=== PATIENT | female | born 1970 | race African-American/Black ===

== ENCOUNTER 2024-08-24 12:33 | Inpatient (IN) | payer OTHER ==
[2024-08-24] MEDS ORDERED: IPRATROPIUM BROM 0.5MG/2.5ML ONE ×2 (13:34→14:58)
[2024-08-24] MEDS ORDERED: ALBUTEROL 2.5 MG/3 ML NEB SOL ONE ×2 (13:34→14:58)
[2024-08-24 13:39] LABS: Absolute Lymphocytes (CBC) 2.3 K/uL (0.7-4.9); Absolute Monocytes 0.3 K/uL (0.1-1.3); Absolute Neutrophil 4.4 K/uL (1.8-8.0); Basophils % 0.6 % (0-1.3); Eosinophils % 0.6 % (0-4.4); Hematocrit 39.1 % (36.0-45.0); Hemoglobin 13.8 g/dL (12.0-15.0); Lymphocytes % 32.4 % (15.3-44.8); MCH 40.3 pg (27.0-35.0); MCHC 35.3 g/dL (32.0-36.0); MCV 114.2 fL (80-100); Monocytes % 4.8 % (3.3-12.3); Neutrophils % 61.6 % (41.7-73.7); Nucleated Red Blood Cells % 0.1 % (0-0); Platelets 447 thou/uL (152-406); RBC Red Blood Cell Count 3.42 M/uL (3.86-4.86); Red Cell Distribution Width 16.2 % (12.1-15.2)
[2024-08-24 14:04] LABS: ALT/SGPT 19 U/L (13-56); AST/SGOT 30 U/L (15-37); Albumin 3.6 g/dL (3.4-5.0); Albumin/Globulin Ratio 0.8 (1.1-1.8); Alkaline Phosphatase 101 U/L (45-117); BUN Blood Urea Nitrogen 4 mg/dL (7-18); Bicarbonate 23 mEq/L (21-32); Bilirubin Total 0.3 mg/dL (0.2-1.0); Globulin 4.3 g/dL (2.3-3.5); Glomerular Filtration Rate 105 ml/min (=/>90); Glucose Level 169 mg/dL (74-106); NT PRO-BNP 16 pg/mL (<125); Protein, Total 7.9 g/dL (6.4-8.2); Sodium Level 138 mEq/L (136-145)
[2024-08-24 14:05] LABS: Anion Gap 11.9 mEq/L (5.0-15.0); Magnesium 1.4 mg/dL (1.6-2.4); Potassium 2.9 mEq/L (3.5-5.1)
[2024-08-24 14:07] LABS: Bilirubin Direct < 0.2 mg/dL (0-0.2); Bilirubin Indirect, Calculated 0.1 mg/dL (0.2-0.8)
[2024-08-24 14:11] LABS: SARS-CoV-2 Antigen CONTROL BLUE LINE VIS/BG OK; SARS-CoV-2 Antigen Rapid Res Negative (Negative)
[2024-08-24 14:40] LABS: PT Prothrombin Time 10.9 SECONDS (9.4-12.5); Protime INR 0.97
[2024-08-24] MEDS ORDERED: NA CHLORIDE 0.9% 250 ML ONE (15:05)
[2024-08-24] MEDS ORDERED: CEFTRIAXONE 1000 MG/VIAL ONE (15:05)
[2024-08-24] MEDS ORDERED: NA CHLORIDE 0.9% 1,000 ML ONE (15:05)
[2024-08-24] MEDS ORDERED: AZITHROMYCIN 500 MG INJ IVPB ONE (15:05)
--- NOTE | 2024-08-24 15:11 | EDPHYS ---
Physician Documentation [facility] Name: Airam Stern Age: 53 yrs Sex: Female : 1970 Arrival Date: 08/24/2024 Time: 12:33 Bed 13 Private MD: ED Physician Tyler Munoz HPI: 08/24 13:35 This 53 yrs old Black Female presents to ER via Ambulatory with complaints of Breathing sp3 Difficulty, Cough. 13:35 53-year-old female with a history of hypertension now presents to the ED with chief sp3 complaint cough, shortness of breath and congestion coupled with chest pain. She denies fever, back pain, abdominal pain, vomit, diarrhea, rash, syncope, sick contacts, or any other signs or symptoms on ROS at this time.. CREMATOR: 13:18 LMP N/A - , Not mb9 Historical: - Allergies: 12:57 No Known Allergies; ph - Home Meds: 13:08 amlodipine 10 mg tablet [Active]; mb9 - PMHx: 13:08 Hypertensive disorder; mb9 - PSHx: 13:08 Total abdominal hysterectomy; mb9 - Immunization history:: Adult Immunizations unknown. - Infectious Disease History:: Denies. - Social history:: Smoking status: Patient reports the use of cigarette tobacco products, smokes one-half pack cigarettes per day. ROS: 13:38 Constitutional: Negative for fever, chills, and weight loss, Eyes: Negative for injury, sp3 pain, redness, and discharge, ENT: Negative for injury, pain, and discharge, Neck: Negative for injury, pain, and swelling, Cardiovascular: Negative for chest pain, palpitations, and edema, Abdomen/GI: Negative for abdominal pain, nausea, vomiting, diarrhea, and constipation, Back: Negative for injury and pain, MS/Extremity: Negative for injury and deformity, Skin: Negative for injury, rash, and discoloration, Neuro: Negative for headache, weakness, numbness, tingling, and seizure, Psych: Negative for depression, anxiety, suicide ideation, homicidal ideation, and hallucinations, Allergy/Immunology: Negative for hives, rash, and allergies, Endocrine: Negative for neck swelling, polydipsia, polyuria, polyphagia, and marked weight changes, Hematologic/Lymphatic: Negative for swollen nodes, abnormal bleeding, and unusual bruising, 13:38 All other systems are negative, Exam: 13:38 Constitutional: This is a well developed, well nourished patient who is awake, alert, sp3 and in no acute distress. Head/Face: Normocephalic, atraumatic. Eyes: Pupils equal round and reactive to light, extra-ocular motions intact. Lids and lashes normal. Conjunctiva and sclera are non-icteric and not injected. Cornea within normal limits. Periorbital areas with no swelling, redness, or edema. Neck: Trachea midline, no thyromegaly or masses palpated, and no cervical lymphadenopathy. Supple, full range of motion without nuchal rigidity, or vertebral point tenderness. No Meningismus. Chest/axilla: Normal chest wall appearance and motion. Nontender with no deformity. No lesions are appreciated. Cardiovascular: Regular rate and rhythm with a normal S1 and S2. No gallops, murmurs, or rubs. Normal PMI, no JVD. No pulse deficits. Abdomen/GI: Soft, non-tender, with normal bowel sounds. No distension or tympany. No guarding or rebound. No evidence of tenderness throughout. Back: No spinal tenderness. No costovertebral tenderness. Full range of motion. Skin: Warm, dry with normal turgor. Normal color with no rashes, no lesions, and no evidence of cellulitis. MS/ Extremity: Pulses equal, no cyanosis. Neurovascular intact. Full, normal range of motion. Neuro: Awake and alert, GCS 15, oriented to person, place, time, and situation. Cranial nerves II-XII grossly intact. Motor strength 5/5 in all extremities. Sensory grossly intact. Cerebellar exam normal. Normal gait. Psych: Awake, alert, with orientation to person, place and time. Behavior, mood, and affect are within normal limits. 13:38 Respiratory: Active cough with production. Mild wheezing. Vital signs are normal room air pulse oxygenation 98%., 13:40 ECG was reviewed by the Attending Physician. EKG demonstrates normal sinus rhythm at 96 sp3 bpm with normal intervals, QTc of 535, leftward axis and nonspecific diffuse ST/T changes without evidence of acute ischemia. Vital Signs: 12:56 BP 119 / 86; Pulse 114; Resp 24; Temp 97.7; Pulse Ox 98% on R/A; ph 13:08 Weight 95.25 kg; Height 5 ft. 7 in. ; mb9 13:18 BP 121 / 86; Pulse 98; Resp 20; Pulse Ox 98% on R/A; mb9 14:12 BP 126 / 82; Pulse 110; Resp 20; Pulse Ox 97% on R/A; mb9 14:58 BP 134 / 81; Pulse 120; Resp 20; Pulse Ox 97% on 2 lpm NC; mb9 17:35 BP 125 / 74; Pulse 110; Resp 18; Temp 97.8(O); Pulse Ox 100% on 2 lpm NC; mb9 13:08 Body Mass Index 32.89 (95.25 kg, 170.18 cm) mb9 MDM: 12:53 Medical Screening Exam initiated sp3 13:39 Data reviewed: vital signs, nurses notes, lab test result(s), EKG, radiologic studies. sp3 ED course: 53-year-old female with hypertension now with upper respiratory symptoms and chest pain. Differential diagnosis includes upper respiratory infection, viral illness, COVID-19, strep pharyngitis, bronchitis, pneumonia, influenza, and to a lesser degree acute coronary syndrome. Workup will include EKG, chest x-ray, labs, swabs and general supportive care including nebulizer.. 15:09 ED course: Patient with pulse oxygenation in the upper 80s and continues to cough and sp3 have shortness of breath. Heart rate between 110 and 120. Normal saline will be given in addition to antibiotics and continue nebulizer treatments. Cultures pending. X-ray demonstrates no significant infiltrate however it may be lagging clinically. Patient will be admitted to observation status for continued treatment.. 08/24 13:22 Order name: Basic Metabolic Panel; Complete Time: 14:39 sp3 08/24 13:22 Order name: CBC with Diff sp3 08/24 13:22 Order name: LFT's; Complete Time: 14:39 sp3 08/24 13:22 Order name: Magnesium; Complete Time: 14:39 sp3 08/24 13:22 Order name: NT PRO-BNP; Complete Time: 14:39 sp3 08/24 13:22 Order name: PT-INR; Complete Time: 14:59 sp3 08/24 13:22 Order name: Troponin HS; Complete Time: 14:39 sp3 08/24 13:33 Order name: Flu; Complete Time: 14:39 sp3 08/24 13:33 Order name: SARS RAPID; Complete Time: 14:39 sp3 08/24 13:33 Order name: Strep sp3 08/24 14:14 Order name: Throat Culture EDOR 08/24 14:59 Order name: Blood Culture Adult (2) [facility] 08/24 15:02 Order name: Lactate w/ 2H reflex if indic. sp3 08/24 15:20 Order name: CBC Smear Scan EDMS 08/24 16:33 Order name: Basic Metabolic Panel EDMS 08/24 16:33 Order name: Basic Metabolic Panel EDMS 08/24 17:45 Order name: Ghost Lactate-NO COLLECT Timer EDMS 08/24 13:22 Order name: XRAY Chest (1 view); Complete Time: 15:15 sp3 08/24 13:22 Order name: Cardiac monitoring; Complete Time: 13:22 sp3 08/24 13:22 Order name: EKG - Nurse/Tech; Complete Time: 13:22 sp3 08/24 13:22 Order name: IV Saline Lock; Complete Time: 13:22 sp3 08/24 13:22 Order name: Labs collected and sent; Complete Time: 13:22 sp3 08/24 13:22 Order name: O2 Per Protocol; Complete Time: 13:22 sp3 08/24 13:22 Order name: O2 Sat Monitoring; Complete Time: 13:22 sp3 Administered Medications: 13:44 Drug: DuoNeb Nebulize (3:1) (2.5 mg - 0.5 mg) 3 ml Nebulizer once Route: Nebulizer; 9 14:13 Follow up: Response: No adverse reaction mb9 15:02 Not Given (Duplicate Order): DuoNeb Nebulize (3:1) (2.5 mg - 0.5 mg) 3 ml Nebulizer oncell1 15:22 Drug: NS 0.9% IV 1000 ml IV at 1000 ml once; to be given as a bolus over 60 minutes mb9 Route: IV; Rate: 1000 ml; Site: right antecubital; 16:05 Follow up: Response: No adverse reaction; IV Status: Completed infusion mb9 15:22 Drug: Rocephin - Rocephin (cefTRIAXone) IVPB 1 grams IVPB once over 30 mins; (mix in 50 mb9 mL NS) Route: IVPB; Infused Over: 30 mins; Site: right antecubital; 16:05 Follow up: Response: No adverse reaction; IV Status: Completed infusion mb9 15:22 Drug: DuoNeb Nebulize (3:1) (2.5 mg - 0.5 mg) 3 ml Nebulizer once Route: Nebulizer; mb9 16:05 Follow up: Response: No adverse reaction mb9 15:33 Drug: Zithromax IVPB 500 mg IVPB once over 1 hrs; mix in 250 mL NS Route: IVPB; Infused mb9 Over: 1 hrs; Site: right antecubital; 17:01 Follow up: Response: No adverse reaction; IV Status: Completed infusion mb9 Disposition Summary: 08/24/24 15:10 Hospitalization Ordered Notes: Hospitalization Status: Observation sp3 Provider: Linda Almanzar sp3 Location: Telemetry/MedSurg (observation) sp3 Condition: Stable sp3 Problem: new sp3 Symptoms: have worsened sp3 Bed/Room Type: Standard sp3 Room Assignment: 203(08/24/24 17:09) bd Diagnosis - Hypoxia, bronchitis, cough sp3 Forms: - Medication Reconciliation Form sp3 - SBAR form sp3 - Leadership Thank You Letter sp3 Signatures: Dispatcher [employer] EDMS Anyi Gamboa Patricia, RN RN Tyler Munoz MD MD sp3 Zara Muller RN RN mb9 Bello Dill RN ll1 Corrections: (The following items were deleted from the chart) 13:23 13:23 BASIC METABOLIC PANEL+C.LAB.BRZ ordered. EDMS EDMS 13:23 13:23 CBC+H.LAB.BRZ ordered. EDMS EDMS 13:23 13:23 HEPATIC FUNCTION+C.LAB.BRZ ordered. EDMS EDMS 13:23 13:23 MAGNESIUM+C.LAB.BRZ ordered. EDMS EDMS 13:23 13:23 PROBNP+C.LAB.BRZ ordered. EDMS EDMS 13:23 13:23 PROTIME (+INR)+COAG.LAB.BRZ ordered. EDMS EDMS 13:23 13:23 Troponin High Sensitivity+C.LAB.BRZ ordered. EDMS EDMS 13:23 13:23 Chest Single View+RAD.RAD.BRZ ordered. EDMS EDMS 16:36 16:36 Influenza Screen (A ordered. EDMS EDMS 17:09 15:10 sp3 bd
--- NOTE | 2024-08-24 15:11 | ER ---
Nurse's Notes [facility] Name: Airam Stern Age: 53 yrs Sex: Female : 1970 Arrival Date: 08/24/2024 Time: 12:33 Bed 13 Private MD: Diagnosis: Hypoxia, bronchitis, cough Presentation: 08/24 12:56 Chief complaint: Patient states: SOB, cough and feeling sick x 2 days, also reports ph chills, back and "lung pain" and pain in R middle finger. Coronavirus screen: Vaccine status: Patient reports receiving the 2nd dose of the covid vaccine. Ebola Screen: No symptoms or risks identified at this time. Initial Sepsis Screen: Does the patient meet any 2 criteria? No. Patient's initial sepsis screen is negative. Does the patient have a suspected source of infection? No. Patient's initial sepsis screen is negative. Risk Assessment: Do you want to hurt yourself or someone else? Patient reports no desire to harm self or others. Onset of symptoms was August 24, 2024. 12:56 Method Of Arrival: Ambulatory ph 12:56 Acuity: GUNNER 2 ph Triage Assessment: 13:08 Respiratory: the patient has moderate shortness of breath. 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 - Infectious Disease History:: Denies. - Social history:: Smoking status: Patient reports the use of cigarette tobacco products, smokes one-half pack cigarettes per day. Screenin:55 [facility] ED Fall Risk Assessment (Adult) History of falling in the last 3 months, mb9 including since admission No falls in past 3 months (0 pts) Confusion or Disorientation No (0 pts) Intoxicated or Sedated No (0 pts) Impaired Gait No (0 pts) Mobility Assist Device Used No (0 pt) Altered Elimination No (0 pt) Score/Fall Risk Level 0 - 2 = Low Risk Oriented to surroundings, Maintained a safe environment, Educated pt \\T\\ family on fall prevention, incl call for assistance when getting out of bed. Abuse screen: Denies threats or abuse. Nutritional screening: No deficits noted. Tuberculosis screening: No symptoms or risk factors identified. Assessment: 13:06 General: Appears uncomfortable, ill, Behavior is cooperative. Pain: Complains of pain mb9 in back and chest Pain currently is 8 out of 10 on a pain scale. Quality of pain is described as throbbing, Pain began gradually, Is continuous. Neuro: Garcia Agitation-Sedation Scale (RASS): 0 - Alert and Calm Level of Consciousness is awake, alert, obeys commands, Oriented to person, place, time, situation, Appropriate for age. Cardiovascular: Reports chest pain, Heart tones S1 S2 present Patient's skin is warm and dry. Rhythm is sinus tachycardia. Respiratory: Reports shortness of breath cough that is Airway is patent Respiratory effort is even, unlabored, Respiratory pattern is regular, symmetrical, Breath sounds are clear bilaterally. GI: Abdomen is round non-distended, Bowel sounds present X 4 quads. Abd is soft and non tender X 4 quads. Reports constipation. : No signs and/or symptoms were reported regarding the genitourinary system. EENT: No signs and/or symptoms were reported regarding the EENT system. Derm: Skin is pink, warm \\T\\ dry. Musculoskeletal: Range of motion: intact in all extremities. 14:13 Reassessment: Patient and/or family updated on plan of care and expected duration. Pain mb9 level reassessed. Patient is alert, oriented x 3, equal unlabored respirations, skin warm/dry/pink. Patient states symptoms have not improved. 14:57 Reassessment: PT SPO2 dropped to 80% on RA. Pt placed on 2 L/min via nasal cannula. mb9 SPO2 now 97%. ERP notified. 16:05 Reassessment: Patient and/or family updated on plan of care and expected duration. Pain mb9 level reassessed. Patient is alert, oriented x 3, equal unlabored respirations, skin warm/dry/pink. Patient states symptoms have not improved. Vital Signs: 12:56 BP 119 / 86; Pulse 114; Resp 24; Temp 97.7; Pulse Ox 98% on R/A; ph 13:08 Weight 95.25 kg; Height 5 ft. 7 in. ; mb9 13:18 BP 121 / 86; Pulse 98; Resp 20; Pulse Ox 98% on R/A; mb9 14:12 BP 126 / 82; Pulse 110; Resp 20; Pulse Ox 97% on R/A; mb9 14:58 BP 134 / 81; Pulse 120; Resp 20; Pulse Ox 97% on 2 lpm NC; mb9 17:35 BP 125 / 74; Pulse 110; Resp 18; Temp 97.8(O); Pulse Ox 100% on 2 lpm NC; mb9 13:08 Body Mass Index 32.89 (95.25 kg, 170.18 cm) mb9 ED Course: 12:37 Patient arrived in ED. mr 12:40 Tyler Munoz MD is Attending Physician. sp3 12:52 Zara Muller RN is Primary Nurse. mb9 12:55 Arm band placed on. mb9 12:57 Triage completed. ph 13:07 Initial lab(s) drawn, by me, sent to lab. EKG done, by ED staff, reviewed by Tyler Munoz MD. Inserted saline lock: 20 gauge in right antecubital area, using aseptic technique. Blood collected. Flushed with 10 mL NS. 13:08 Placed in gown. Bed in low position. Call light in reach. Side rails up X 1. Provided mb9 Education on: press call light if needing anything. Client placed on continuous cardiac and pulse oximetry monitoring. NIBP monitoring applied. teletypesetter monitor on. 13:08 No provider procedures requiring assistance completed. mb9 13:35 XRAY Chest (1 view) In Process Unspecified. EDMS 13:44 Strep Sent. mb9 13:44 SARS RAPID Sent. mb9 13:44 Flu Sent. mb9 15:10 Linda Almanzar is Hospitalizing Provider. sp3 15:24 Blood Culture Adult (2) Sent. mb9 15:24 Lactate w/ 2H reflex if indic. Sent. mb9 16:05 Patient admitted, IV remains in place. mb9 Administered Medications: 13:44 Drug: DuoNeb Nebulize (3:1) (2.5 mg - 0.5 mg) 3 ml Nebulizer once Route: Nebulizer; mb9 14:13 Follow up: Response: No adverse reaction mb9 15:02 Not Given (Duplicate Order): DuoNeb Nebulize (3:1) (2.5 mg - 0.5 mg) 3 ml Nebulizer oncell1 15:22 Drug: NS 0.9% IV 1000 ml IV at 1000 ml once; to be given as a bolus over 60 minutes mb9 Route: IV; Rate: 1000 ml; Site: right antecubital; 16:05 Follow up: Response: No adverse reaction; IV Status: Completed infusion mb9 15:22 Drug: Rocephin - Rocephin (cefTRIAXone) IVPB 1 grams IVPB once over 30 mins; (mix in 50 mb9 mL NS) Route: IVPB; Infused Over: 30 mins; Site: right antecubital; 16:05 Follow up: Response: No adverse reaction; IV Status: Completed infusion mb9 15:22 Drug: DuoNeb Nebulize (3:1) (2.5 mg - 0.5 mg) 3 ml Nebulizer once Route: Nebulizer; mb9 16:05 Follow up: Response: No adverse reaction mb9 15:33 Drug: Zithromax IVPB 500 mg IVPB once over 1 hrs; mix in 250 mL NS Route: IVPB; Infused mb9 Over: 1 hrs; Site: right antecubital; 17:01 Follow up: Response: No adverse reaction; IV Status: Completed infusion mb9 Medication: 13:08 VIS not applicable for this client. mb9 Outcome: 15:10 Decision to Hospitalize by Provider. sp3 18:05 Admitted to Med/surg accompanied by tech, via wheelchair, mb9 18:05 Condition: stable 18:05 Instructed on the need for admit, 18:10 Patient left the ED. mb9 Signatures: Dispatcher [employer] EDNV Zara Archibald, Tiff Tobias RN RN Tyler Waldrop MD MD sp3 Zara Muller RN RN mb9 Bello Dill RN ll1 Corrections: (The following items were deleted from the chart) 14:13 14:12 Pulse 110bpm; Resp 20bpm; Pulse Ox 97% RA; mb9 mb9
--- NOTE | 2024-08-24 15:14 | RAD REPORT ---
EXAMINATION: ONE VIEW CHEST XR CLINICAL INDICATION: Female, 53 years old.,CHEST PAIN TECHNIQUE: Frontal chest projection is submitted. Examination is limited by patient positioning and t echnique. COMPARISON: No prior exam. FINDINGS: The lungs are well inflated and clear. No pneumothorax or sizable effusion. The heart is normal in s ize. Mediastinal contours are unremarkable. IMPRESSION: No acute intrathoracic abnormalities.
[2024-08-24 15:20] LABS: Anisocytosis SLIGHT; Blood Morphology Comment NOTED (NOT SEEN); Macrocytosis 2+; Platelet Estimate INCR; White Blood Cell Scan OK (OK)
[2024-08-24] MEDS ORDERED: PROMETHAZINE 25 MG TABLET PO PRN (16:25)
[2024-08-24] MEDS ORDERED: ONDANSETRON 4 MG/2 ML VIAL IV PRN (16:25)
[2024-08-24] MEDS ORDERED: ZOLPIDEM TARTRATE 5 MG TABLET PO PRN (16:25)
--- NOTE | 2024-08-24 16:43 | P.HP ---
Certification for Inpatient Patient admitted to: Observation With expected LOS: <2 Midnights Patient will require the following post-hospital care: None Practitioner: I am a practitioner with admitting privileges, knowledge of patient current condition, hospital course, and medical plan of care. Services: Services provided to patient in accordance with Admission requirements found in Title 42 Section 412.3 of the Code of Federal Regulations Patient History Date of Service: 08/24/24 Reason for admission: Dyspnea and dry cough over 3 days History of Present Illness: This is 53 years old female patient with a past medical history notable for hypertension, posttraumatic stress disorder, active smoker half a pack a day for the past 40 years who presented to emergency room for evaluation of shortness of breath and dry cough for the past 3 to 4 days. She tried an OTC antitussive including DayQuil but no relief, no recent new medication, several family member is sick with a cold, denied any bronchial asthma or COPD or heart failure or recent initiation of JONNY inhibitor. She denied any fever or chill or hemoptysis or chest pain. She reported her shortness of breath worsened on exertion and lying flat, intermittent wheezing. She has had a transthoracic echocardiogram done 2 or 3 months ago, March 2024 she was told her heart work was thickened. Her blood pressure was normotensive, tachycardia at 114, tachypnea respiratory 24, afebrile, oxygen saturation is 98% on room air upon arrival at emergency room, her saturation was noted to drop to 85% with intractable cough, she received a DuoNeb nebulizer x 1, internal medicine was called for evaluation for admission. Allergies No Known Allergies Allergy (Unverified 08/24/24 16:37) Home medications list reviewed: Yes (Amlodipine, sertraline, cyclobenzaprine) - Past Medical/Surgical History Diabetic: No Review of Systems Other: Consitutional; fever(-), chills (-), rigor(-), night sweat(-), unintentional weight loss(-) HEENT; epistaxis (-), otorrhea (-), otalgia (-) Respiratory; shortness of breath (+), wheezing (+), cough (+), sputum (-), pleuritic chest pain (-) Cardiovascular; chest pain (-), peripheral edema (-), paroxysmal nocturnal dyspnea (-), orthopnea (+) Gastrointestinal; nausea (-), vomiting (-), abdominal pain (-), diarrhea (-), constipation (-), melena (-), hematochezia (-) Skin; rash (-), pruritus (-) 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 General: Obese, acutely ill looking, in mild apparent distress,. HEENT: Normocephalic, atraumatic,. Neck: Supple, without JVD or goiter or thyroid mass. Respiratory: Normal breathing effort, equal air entry bilaterally, bibasilar crackle, intermittent mild expiratory wheezing. Cardiovascular: Regular rate and rhythm, S1, S2 normal, no murmur no gallop. Gastrointestinal: Normal bowel sounds, nondistended, nontender, No ascites, , No masses, no hepatosplenomegaly. Musculoskeletal: No clubbing, No peripheral edema. Integumentary: No rashes. Lymphatics: No axilla or cervical lymphadenopathy. Neurology; alert awake oriented x3, no focal neurologic deficit - Studies Laboratory Data (last 24 hrs) 08/24/24 08/24/24 08/24/24 13:00 13:00 13:00 WBC 7.20 Hgb 13.8 Hct 39.1 Plt Count 447 H PT 10.9 INR 0.97 Sodium 138 Potassium 2.9 L BUN 4 L Creatinine 0.67 Glucose 169 H Magnesium 1.4 L Total Bilirubin 0.3 AST 30 ALT 19 Alkaline Phosphatase 101 N-terminal proBNP normal at 16, elevated lactate of 3.1, negative influenza A and B by rapid antigen test, negative SARS COVID 2 antigen test Microbiology Data (last 24 hrs): 08/24/24 13:41 Nasopharnyx Influenza Type A Antigen Screen - Final 08/24/24 13:41 Nasopharnyx Influenza Type B Antigen Screen - Final 08/24/24 13:41 Throat Group A Streptococcus Rapid Screen - Final Imagings Data: Chest x-ray personally reviewed, no cardiomegaly, no parenchymal lung disease including pulmonary edema or pneumonia Assessment and Plan - Plan This is 53 years old female patient with past medical history notable for hypertension, posttraumatic stress disorder, heavy smoker [id number] who presented to emergency room for intractable cough, shortness of breath for the past 3 to 4 days and admitted for #1 intermittent acute hypoxic respite distress secondary to #2 Continue oxygen therapy by nasal cannula to keep oxygen saturation 92%, #2 new onset of shortness of breath and intractable cough Clear chest x-ray, negative influenza A and B and COVID-19 Differential diagnosis include acute viral bronchitis, new onset heart failure with pulmonary edema, N-terminal proBNP could be falsely negative due to obesity scheduled DuoNeb Tessalon scheduled dose, codeine cough syrup as needed, will try IV furosemide 20 mg x 1 #3 mild hypokalemia and hypomagnesemia Order potassium and magnesium replacement, recheck electrolytes tomorrow morning #4 elevated lactate associated #1 DVT prophylaxis; enoxaparin subcu Disposition; plan to discharge home 1 to 2 days Discharge Plan: Home - Advance Directives Does patient have a Living Will: No Does patient have a Durable POA for Healthcare: No
[2024-08-24] MEDS: FUROSEMIDE 20 MG/ 2ML VIAL IV SCH (18:23)
[2024-08-24] MEDS: ACETAMINOPHEN 325 MG TABLET PO PRN (18:25)
[2024-08-24] MEDS: PROMETH/COD 6.25/10MG SYRUP 5ML PO PRN (18:26)
[2024-08-24] MEDS: IPRATROPIUM BROM 0.5MG/2.5ML NEB SCH (20:27)
[2024-08-24] MEDS: BENZONATATE 100 MG CAP PO SCH (20:37)
[2024-08-24] MEDS: POTASSIUM CL SA 10 MEQ TAB PO SCH (20:37)
[2024-08-24] MEDS: MAGNESIUM HYDROXIDE 8% 30 ML PO SCH (20:38)
[2024-08-24] MEDS: Magnesium Sulfate 2gm IVPB 2 G/50 ML BAG IV ONE (20:39)
[2024-08-24 22:46] VITALS: BMI 32.7
[2024-08-25 05:40] LABS: Anion Gap 5.7 mEq/L (5.0-15.0); Magnesium 1.9 mg/dL (1.6-2.4); Potassium 3.7 mEq/L (3.5-5.1)
[2024-08-25] MEDS: ENOXAPARIN 40 MG/0.4 ML SQ SCH (09:19)
--- NOTE | 2024-08-25 13:23 | P.PN ---
Subjective Date of Service: 08/25/24 Chief Complaint: Dyspnea and dry cough over 3 days Subjective: No new changes (She is complaining of shortness of breath on exertion, continuous dry cough with minimal phlegm, denied any chest pain or dizziness or fever) Review of Systems Other: Consitutional; fever(-), chills (-), rigor(-), night sweat(-), unintentional weight loss(-) HEENT; epistaxis (-), otorrhea (-), otalgia (-) Respiratory; shortness of breath (+), wheezing (+), cough (+), sputum (+), pleuritic chest pain (-) Cardiovascular; chest pain (-), peripheral edema (-), paroxysmal nocturnal dyspnea (-), orthopnea (+) Gastrointestinal; nausea (-), vomiting (-), abdominal pain (-), diarrhea (-), constipation (-), melena (-), hematochezia (-) Urinary; urinary frequency (-), dysuria (-), urgency (-), flank pain (-), gross hematuria (-) Skin; rash (-), 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 General: Obese, acutely ill looking, in mild apparent distress,. HEENT: Normocephalic, atraumatic,. Neck: Supple, without JVD or goiter or thyroid mass. Respiratory: Normal breathing effort, equal air entry bilaterally,. Clear breath sounds bilaterally without wheezing or crackle or rhonchi. Cardiovascular: Regular rate and rhythm, S1, S2 normal, no murmur no gallop. Gastrointestinal: Normal bowel sounds, nondistended, nontender, No ascites, , No masses, no hepatosplenomegaly. Musculoskeletal: No clubbing, No peripheral edema. Integumentary: No rashes. Lymphatics: No axilla or cervical lymphadenopathy. Neurology; alert awake oriented x3, no focal neurologic deficit - Studies Laboratory Data (last 24 hrs) 08/25/24 08/24/24 08/24/24 05:05 13:00 13:00 WBC 7.20 Hgb 13.8 Hct 39.1 Plt Count 447 H PT 10.9 INR 0.97 Sodium 139 Potassium 3.7 D BUN 4 L Creatinine 0.57 Glucose 109 H Magnesium 1.9 Total Bilirubin AST ALT Alkaline Phosphatase 08/24/24 13:00 WBC Hgb Hct Plt Count PT INR Sodium 138 Potassium 2.9 L BUN 4 L Creatinine 0.67 Glucose 169 H Magnesium 1.4 L Total Bilirubin 0.3 AST 30 ALT 19 Alkaline Phosphatase 101 Microbiology Data (last 24 hrs): 08/24/24 13:41 Throat Group A Streptococcus Rapid Screen - Final 08/24/24 13:41 Nasopharnyx Influenza Type A Antigen Screen - Final 08/24/24 13:41 Nasopharnyx Influenza Type B Antigen Screen - Final Assessment And Plan - Plan This is 53 years old female patient with past medical history notable for hypertension, posttraumatic stress disorder, heavy smoker [id number] who presented to emergency room for intractable cough, shortness of breath for the past 3 to 4 days and admitted for #1 intermittent acute hypoxic respiratory distress secondary to #2 No episode of hypoxia noted overnight, SpO2 over 96% on room air Continue oxygen therapy by nasal cannula to keep oxygen saturation 92%, #2 new onset of shortness of breath and intractable cough No significant improvement overnight, no response to IV furosemide Clear chest x-ray, negative influenza A and B and COVID-19 Differential diagnosis include acute viral bronchitis, acute exacerbation of COPD (chronic bronchitis), less likely new onset heart failure with pulmonary edema, Will continue scheduled DuoNeb, Tessalon scheduled dose, codeine cough syrup as needed, recheck N-terminal proBNP tomorrow morning #3 mild hypokalemia and hypomagnesemia Resolved with oral supplement #4 elevated lactate associated #1 Recheck serum lactate level tomorrow morning #5 nicotine use disorder Will start her on nicotine patch DVT prophylaxis; enoxaparin subcu Disposition; she is not ready for discharge today, I will change patient's status from observation to inpatient
[2024-08-26] MEDS: AMLODIPINE 10 MG TAB PO SCH (09:20)
[2024-08-26] MEDS: CYCLOBENZAPRINE 10 MG TAB PO SCH (09:20)
[2024-08-26] MEDS: NICOTINE 21 MG/PAT TD SCH (09:21)
[2024-08-26] MEDS: predniSONE 20 MG TAB PO SCH (10:27)
[2024-08-26] MEDS: AZITHROMYCIN 250 MG TAB PO SCH (10:27)
--- NOTE | 2024-08-26 11:06 | P.PN ---
Subjective Date of Service: 08/26/24 Chief Complaint: Dyspnea and dry cough over 3 days Subjective: No new changes (She has not significant improvement on her cough or shortness of breath, still a lot of cough with little phlegm, seems to loosen up, she coughed off small amount of thick yellowish sputum denied any chest pain or fever or wheezing) Review of Systems Other: Consitutional; fever(-), chills (-), rigor(-), night sweat(-), unintentional weight loss(-) HEENT; epistaxis (-), otorrhea (-), otalgia (-) Respiratory; shortness of breath (+), wheezing (-), cough (+), sputum (+), pleuritic chest pain (-) Cardiovascular; chest pain (-), peripheral edema (-), paroxysmal nocturnal dyspnea (-), orthopnea (-) Gastrointestinal; nausea (-), vomiting (-), abdominal pain (-), diarrhea (-), constipation (-), melena (-), hematochezia (-) Urinary; urinary frequency (-), dysuria (-), urgency (-), flank pain (-), gross hematuria (-) Skin; 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 General: Obese, acutely ill looking, in mild apparent distress,. HEENT: Normocephalic, atraumatic,. Neck: Supple, without JVD or goiter or thyroid mass. Respiratory: Normal breathing effort, equal air entry bilaterally,. Clear breath sounds bilaterally without wheezing or crackle or rhonchi. Cardiovascular: Regular rate and rhythm, S1, S2 normal, no murmur no gallop. Gastrointestinal: Normal bowel sounds, nondistended, nontender, No ascites, , No masses, no hepatosplenomegaly. Musculoskeletal: No clubbing, No peripheral edema. Integumentary: No rashes. Lymphatics: No axilla or cervical lymphadenopathy. Neurology; alert awake oriented x3, no focal neurologic deficit - Studies Microbiology Data (last 24 hrs): 08/24/24 13:41 Throat Group A Streptococcus Rapid Screen - Final 08/24/24 13:41 Throat Culture & Sensitivity - Final NORMAL UPPER RESPIRATORY DEJA GROWN. Assessment And Plan - Plan This is 53 years old female patient with past medical history notable for hypertension, posttraumatic stress disorder, heavy smoker [id number] who presented to emergency room for intractable cough, shortness of breath for the past 3 to 4 days and admitted for #1 episodes of acute hypoxic respiratory distress associated with severe cough secondary to #2 Resolving, no episode of hypoxia noted overnight, SpO2 over 96% on room air Will wean her off oxygen with monitor #2 suspected acute exacerbation of COPD No significant improvement overnight, no response to IV furosemide Clear chest x-ray, negative influenza A and B and COVID-19, normal N-terminal proBNP x 2 I will add 40 mg of prednisone once a day and azithromycin 250, Will continue scheduled DuoNeb, Tessalon scheduled dose, codeine cough syrup as needed Outpatient pulmonary function test is required. #3 mild hypokalemia and hypomagnesemia Resolved with oral supplement #4 elevated lactate associated #1 Resolved #5 nicotine use disorder Started on nicotine patch DVT prophylaxis; enoxaparin subcu Disposition; plan to discharge home tomorrow
--- NOTE | 2024-08-26 15:11 | EKG ---
Test Date: 2024-08-24 Test Time: 13:08:11 [employer] In[employer] Channeler: ROXANNE MEASUREMENT RESULTS: Intervals: Rate: 96 NH: 140 QRSD: 82 QT: 424 QTc: 535 [place]: P: 35 NH: 140 QRS: -10 T: 47 INTERPRETIVE STATEMENTS: Normal sinus rhythm Prolonged QT Abnormal ECG No previous ECG available for comparison Electronically Signed On 08-26-24 15:07:47 LIME SPREADER by Selwyn Galindo
[2024-08-27 08:21] VITALS: BP 141/83; TEMP 97.9
[2024-08-27 10:54] VITALS: O2SAT 99
--- NOTE | 2024-08-27 11:44 | P.DS ---
Admission Date: 08/25/24 Discharge Date: 08/27/24 Disposition: ROUTINE DISCHARGE Discharge Condition: GOOD Reason for Admission: Dyspnea and dry cough over 3 days Brief History of Present Illness: This is 53 years old female patient with a past medical history notable for hypertension, posttraumatic stress disorder, active smoker half a pack a day for the past 40 years who presented to emergency room for evaluation of shortness of breath and dry cough for the past 3 to 4 days. She tried an OTC antitussive including DayQuil but no relief, no recent new medication, several family member is sick with a cold, denied any bronchial asthma or COPD or heart failure or recent initiation of JONNY inhibitor. She denied any fever or chill or hemoptysis or chest pain. She reported her shortness of breath worsened on exertion and lying flat, intermittent wheezing. She has had a transthoracic echocardiogram done 2 or 3 months ago, March 2024 in [place]. she was told her heart work was thickened and no heart failure, advised to continue to take amlodipine. She is visiting her family, [place] from [place] Her saturation was noted to drop to 85% with intractable cough, which is improved with oxygen by nasal cannula. She received a DuoNeb nebulizer x 1, internal medicine was called for evaluation for admission. Hospital Course: She improved with nebulizer treatment, oral azithromycin, prednisone, supplemental oxygen by nasal cannula, 2 L/min. She was able to taper off oxygen,, achieved SpO2 over 94% on room air at the time of discharge. #1 episodes of acute hypoxic respiratory distress associated with severe cough secondary to #2 Resolving, no episode of hypoxia noted overnight, SpO2 over 96% on room air #2 suspected acute exacerbation of COPD chest x-ray clear for pneumonia, negative influenza A and B and COVID-19, normal N-terminal proBNP x 2 Outpatient pulmonary function test is required. #3 mild hypokalemia and hypomagnesemia Resolved with oral supplement #4 elevated lactate associated #1 Resolved #5 nicotine use disorder Started on nicotine patch #6 uncontrolled hypertension Blood pressure well-controlled on home hypertensive medication, amlodipine Vital Signs/Physical Exam: Temp Pulse Resp BP Pulse Ox 97.9 F 108 H 16 141/83 H 97 08/27/24 08:00 08/27/24 08:46 08/27/24 08:00 08/27/24 08:46 08/27/24 08:00 Other Physical/Emotional Findings: - Physical Exam. General: Obese, acutely ill looking, in mild apparent distress,. HEENT: Normocephalic, atraumatic,. Neck: Supple, without JVD or goiter or thyroid mass. Respiratory: Normal breathing effort, equal air entry bilaterally,. Clear breath sounds bilaterally without wheezing or crackle or rhonchi. Cardiovascular: Regular rate and rhythm, S1, S2 normal, no murmur no gallop. Gastrointestinal: Normal bowel sounds, nondistended, nontender, No ascites, , No masses, no hepatosplenomegaly. Musculoskeletal: No clubbing, No peripheral edema. Integumentary: No rashes. Lymphatics: No axilla or cervical lymphadenopathy. Neurology; alert awake oriented x3, no focal neurologic deficit Laboratory Data at Discharge: WBC 7.20 thou/uL (4.3-10.9) 08/24/24 13:00 Hgb 13.8 g/dL (12.0-15.0) 08/24/24 13:00 Hct 39.1 % (36.0-45.0) 08/24/24 13:00 Plt Count 447 thou/uL (152-406) H 08/24/24 13:00 PT 10.9 SECONDS (9.4-12.5) 08/24/24 13:00 INR 0.97 08/24/24 13:00 Sodium 139 mEq/L (136-145) 08/25/24 05:05 Potassium 3.7 mEq/L (3.5-5.1) D 08/25/24 05:05 BUN 4 mg/dL (7-18) L 08/25/24 05:05 Creatinine 0.57 mg/dL (0.55-1.02) 08/25/24 05:05 Glucose 109 mg/dL (74-106) H 08/25/24 05:05 Magnesium 1.9 mg/dL (1.6-2.4) 08/25/24 05:05 Total Bilirubin 0.3 mg/dL (0.2-1.0) 08/24/24 13:00 AST 30 U/L (15-37) 08/24/24 13:00 ALT 19 U/L (13-56) 08/24/24 13:00 Alkaline Phosphatase 101 U/L (45-117) 08/24/24 13:00 Home Medications: Amlodipine [Norvasc*] 10 mg PO DAILY 08/24/24 Cyclobenzaprine [Flexeril*] 1 tab PO TID 08/24/24 Benzonatate [Tessalon Perle*] 200 mg PO TID #20 cap 08/26/24 Azithromycin Tab [Zithromax*] 500 mg PO DAILY 3 Days #3 tab 08/27/24 Guaifenesin [Mucinex] 1,200 mg PO BID PRN 15 Days #30 08/27/24 Ipratropium [place] [Atrovent Hfa] 12.9 gm IH Q6HR PRN 14 Days #1 08/27/24 Nicotine [Nicoderm*] 21 mg TD DAILY 14 Days #14 08/27/24 predniSONE [Prednisone*] 20 mg PO BID 3 Days #6 tab 08/27/24 New Medications: Ipratropium [place] [Atrovent Hfa] 12.9 gm IH Q6HR PRN 14 Days #1 PRN Reason: Shortness Of Breath Guaifenesin [Mucinex] 1,200 mg PO BID PRN 15 Days #30 PRN Reason: Cough Nicotine [Nicoderm*] 21 mg TD DAILY 14 Days #14 predniSONE [Prednisone*] 20 mg PO BID 3 Days #6 tab Benzonatate [Tessalon Perle*] 200 mg PO TID #20 cap Azithromycin Tab [Zithromax*] 500 mg PO DAILY 3 Days #3 tab [facility]up: [facility] [Primary Care Provider] -
== END 2024-08-27 09:00 | disposition home or self-care (01) | DRG 192 ==
LOC: ER 12:33 → ERHOLD 17:04 → 2ND 17:52 → OBSVTOIN 08-25 11:25
PROVIDERS: ADMIT Internal Medicine; ATTEND Internal Medicine
DX: J44.1 Chronic obstructive pulmonary disease with (acute) exacerbation (principal); I10 Essential (primary) hypertension; E87.6 Hypokalemia; E83.42 Hypomagnesemia; F43.10 Post-traumatic stress disorder, unspecified; J40 Bronchitis, not specified as acute or chronic; E66.9 Obesity, unspecified; F17.210 Nicotine dependence, cigarettes, uncomplicated; R06.03 Acute respiratory distress; R09.02 Hypoxemia; Z11.52 Encounter for screening for COVID-19; Z79.52 Long term (current) use of systemic steroids; Z68.32 Body mass index [BMI] 32.0-32.9, adult; Z90.710 Acquired absence of both cervix and uterus; Z79.899 Other long term (current) drug therapy
CPT/HCPCS: 36415; 71045; 80048; 80076; 83605; 83735; 83880; 84484; 85025; 85610; 87040; 87070; 87081; 87804; 87811; 93005; 94640; 94760; 96365; 99285; J0696; J1650; J1940; J3475; J7030; J7050; J7512; J7613; J7644